=== PATIENT | male | born 1975 | race Caucasian/White ===

== ENCOUNTER 2017-01-30 07:57 | Inpatient (IN) | payer BC, OTHER ==
[~2017-01-30] VITALS: Ht 182.9 cm; Wt 108.0 kg
--- NOTE | 2017-01-30 11:16 | NUR ---
PRE ADMISSION 41 year old male from [place], alert and oriented x4. bp: 142/97 heart rate: 75, t: 97.8, r: 16, o2 sat: 95%. Patient reports no known drug allergies. Patient reports he is here to detox off of: Etoh, and opiate prescritions pills. Patient brought his home medications with him. Patient denies any history of seizures. Patient educated regarding unit policies with good verbal understanding. Patient was seen and examined by Dr. hammond at intake office.
[2017-01-30] MEDS ORDERED: DICYCLOMINE HCL 20 MG TABLET PO PRN (11:30)
[2017-01-30] MEDS ORDERED: LORAZEPAM 2 MG/1 ML VIAL IM PRN (11:30)
[2017-01-30] MEDS ORDERED: NICOTINE POLACRILEX 4 MG GUM-PK OF TEN BC PRN (11:30)
[2017-01-30] MEDS ORDERED: THIAMINE HCL 200 MG/2 ML VIAL IM ONE (11:30)
[2017-01-30] MEDS ORDERED: MAG HYDROX/AL HYDROX/SIMETH 30 ML LIQUID UDC PO PRN (11:30)
[2017-01-30] MEDS ORDERED: MAGNESIUM HYDROXIDE 30 ML LIQUID UDC PO PRN (11:30)
[2017-01-30] MEDS ORDERED: LOPERAMIDE HCL 2 MG CAPSULE PO PRN ×2 (11:30)
[2017-01-30] MEDS ORDERED: NICOTINE 14 MG/24HR PATCH TD PRN (11:30)
[2017-01-30] MEDS ORDERED: MIRALAX 17 GM POWD.PACK PO PRN (11:30)
[2017-01-30] MEDS ORDERED: diphenhydrAMINE 50 MG CAPSULE PO PRN ×2 (11:30→21:00)
[2017-01-30] MEDS ORDERED: LORAZEPAM 1 MG TABLET PO PRN ×2 (11:30)
[2017-01-30] MEDS ORDERED: ONDANSETRON ODT 4 MG TAB.RAPDIS SL PRN (11:30)
[2017-01-30] MEDS ORDERED: ONDANSETRON 4 MG/2 ML VIAL IM PRN (11:30)
[2017-01-30] MEDS ORDERED: ACETAMINOPHEN 325 MG TABLET PO PRN (11:30)
--- NOTE | 2017-01-30 11:50 | NUR ---
ADMISSION Patient arrived to unit at 1150, noted with steady gait, patients body search completed by male intake staff, no contraband found. Patients body assessment completed, skin intact no bruising, discoloration or skin breakdown noted. patient is 6 feet tall and weighs: 235 lbs. Patient reports no known drug allergies. Patient reports his primary care physician is Dr. Raul Williamson at [facility] in [place]. Patient reports substance use history of: 1. etoh- 4-5 liters of white wine and 3-4 beers (carlo hard lemonade) 4 x a week, last consumed 1 carlo hard lemonade 12 oz drink this morning 01/30/2017, patient reports he began consuming alcohol at the age of 13, but for the past 2 years has been drinking 4xwk. 2. Gary consume 15-20 tabs of 10-325mg each daily for the past 3 years, patient reports he began taking narco in the year 2006, last consumed 4 tabs of 10-325mg each this morning on 01/30/2017. Patient also reports taking prescriptions soma for two years, per patient take 3 tabs of 350mg daily, last took 01/30/2017. Patients home medications were input into [facility], reconciled medications, MD is aware. Patient reports past medical history of: depression Dx: 2 years ago, asthma, Dx: age 13, tear in lumbar 4, Dx: 01/23/2017, arthritis Dx: 1.5 year ago, and surgery to rotator cuff twice in the year 2006 and the year 2008. Patient reports he has no history of seizure. Patient reports siblings have a history of substance abuse. Patient is alert and oriented x4, able to make needs known, presenting with: c/o chills, difficulty sitting still, mild bone and joint aches, mild nausea, tremors that can be felt but not seen, mild anxiety, barely sweating, and moderate generalized body itchiness with admitting cow score of: 6 and ciwa score of: 7. Patients pupils are equal and reactive to light, 3mm. Patients abdomen is soft and non distended, bowel sounds heard in all quadrants. Respirations are even and unlabored, no SOB, patients lungs clear upon auscultation. Safety measures in place. call light kept with in reach. will continue to monitor closely. safety measures in place. Addendum: 02/04/17 at 1205 by ZHANE MONTOYA RN PT ALSO REPORTS USING SOMA PO 1050 MG DAILY. LAST USED 01/30
[2017-01-30] MEDS ORDERED: CETI-102 PO (12:12)
[2017-01-30] MEDS ORDERED: LOPE2CAP PO (12:12)
[2017-01-30] MEDS ORDERED: DIPH25CA83 PO (12:12)
[2017-01-30] MEDS ORDERED: ALBU0.63 NEB (12:12)
[2017-01-30] MEDS ORDERED: PRED5DRO16 EACHEYE (12:12)
[2017-01-30] MEDS ORDERED: MELA3TAB PO (12:12)
[2017-01-30] MEDS ORDERED: TRAZ-144 PO (12:12)
[2017-01-30] MEDS ORDERED: SERT50TA PO (12:12)
[2017-01-30] MEDS ORDERED: DICL100T2 PO (12:12)
[2017-01-30 12:39] VITALS: BP 142/97
[2017-01-30 13:01] LABS: *AMPHETAMINE, URINE NEGATIVE (NEGATIVE); *BARBITURATE, URINE NEGATIVE (NEGATIVE); *CANNABINOID, URINE NEGATIVE (NEGATIVE); *COCCAINE, URINE NEGATIVE (NEGATIVE); *OPIATE, URINE POSITIVE (NEGATIVE); *PHENCYCLIDINE SCREEN,URINE NEGATIVE (NEGATIVE)
[2017-01-30 14:48] LABS: ALANINE AMINOTRANSFERASE 75 U/L (16-63); ALKALINE PHOSPHATASE 90 U/L (50-136); AMYLASE 38 U/L (25-115); ASPARTATE AMINOTRANSFERASE 37 U/L (15-37); BILIRUBIN,TOTAL 0.5 mg/dL (0.2-1.0); CARBON DIOXIDE 33 mmol/L (21-32); CHLORIDE 102 mmol/L (98-107); CREATININE 1.4 mg/dL (0.6-1.3); GLUCOSE 101 mg/dL (74-106); POTASSIUM 4.6 mmol/L (3.5-5.1); UREA NITROGEN, BLOOD 12 mg/dL (7-18)
[2017-01-30 15:07] LABS: BASOPHILS % (AUTO) 0.4 % (0.0-2.0); EOSINOPHILS # (AUTO) 0.4 K/uL (0.0-0.7); EOSINOPHILS % (AUTO) 4.5 % (0.0-7.0); HEMATOCRIT 49.4 % (40-50); HEMOGLOBIN 16.3 G/DL (14.0-18.0); LYMPHOCYTES # (AUTO) 2.8 K/UL (0.8-4.8); LYMPHOCYTES % (AUTO) 30.3 % (20.5-51.5); MEAN CORPUSCULAR HEMOGLOBIN 31.5 UUG (27.0-31.0); MEAN CORPUSCULAR HGB CONC 33 g/dL (32.0-37.0); MEAN CORPUSCULAR VOLUME 95.6 FL (82.0-92.0); MONOCYTES # (AUTO) 0.8 K/UL (0.1-1.30); MONOCYTES % (AUTO) 8.5 % (0.0-11.0); NEUTROPHILS # (AUTO) 5.1 K/UL (1.8-8.9); NEUTROPHILS % (AUTO) 56.3 % (38.5-71.5); PLATELET COUNT (AUTO) 261 K/UL (150-450); RED BLOOD CELL COUNT(AUTO) 5.17 MIL/UL (4.7-6.1); WHITE BLOOD COUNT (AUTO) 9.1 K/UL (4.0-11.2)
[2017-01-30 16:48] LABS: ETHANOL < 3 MG/DL (0-0)
[2017-01-30] MEDS ORDERED: BUPRENORPHINE HCL 2 MG TAB.SUBL SL PRN (17:00)
[2017-01-30] MEDS: IBUPROFEN 600 MG TABLET PO PRN (17:48)
--- NOTE | 2017-01-30 17:48 | NUR ---
PRN MOTRIN patient c/o back pain 10/06 administered Motrin PO as ordered, will monitor effectiveness of medication.
--- NOTE | 2017-01-30 18:48 | NUR ---
MOTRIN REASSESSMENT Patient reports medication effective, current pain level 2/10, tolerable as per patient, will continue to monitor.
--- NOTE | 2017-01-30 18:59 | NUR ---
END OF SHIFT Patient alert and oriented x4, vital signs were stable during shift. Admitted this morning, with admitting dx: opiate/etoh dependence. Patient compliant with therapeutic plan of care during shift.Patient is scheduled to begin an Ativan and subutex taper tomorrow as ordered for s/sx of withdrawal. 1700 assessment patient presented with: tremors that can be felt but not seen, barely sweating, and mild anxiety and heart rate of: 86 with ciwa score of: 3 and cow score of: 4. patient to continue under close observation. Patient compliant with plan of care. encouraged to attend group therapies/sessions to learn new coping skills to prevent relapse. Patient denies SI/HI. Patient encouraged adequate PO fluid intake as tolerated. Patient encouraged adequate PO fluid intake as tolerated. Safety measures in place. call light kept with in reach, safety measures in place. will continue to monitor closely. patient endorsed to restaurant shift leader nurse, all pertinent information discussed.
--- NOTE | 2017-01-30 19:15 | NUR ---
START OF SHIFT Patient is a 41-year-old male admitted today, 01/30/17 for ETOH and opiate dependence. Patient reports drinking 4-5 liters of wine and 3-4 12oz [place] hard lemonade 4x/week for 2 years. Patient reports using 15-20 tablets of 10/325mg [place] daily for 3 years. Patient is scheduled to start 5 day Ativan taper and 5 day Subutex taper tomorrow. Patient has a past medical history of depression, anxiety, tendonitis, arthritis, rotator cuff surgery, and a tear in L4. Patient is FULL CODE, NKA, and on regular diet. Patient is on fall precautions. Upon assessment, patient is alert and oriented x4, respirations 16, even and unlabored; denies SOB or chest pain. Safety measures are in place, call light within reach, bed in low position. Will continue to monitor.
[2017-01-30 20:00] VITALS: BP 131/95
[2017-01-30] MEDS: TRAZODONE 50 MG TABLET PO SCH (20:38)
[2017-01-30] MEDS ORDERED: TRAZODONE 50 MG TABLET PO PRN (21:00)
[2017-01-30] MEDS ORDERED: LORAZEPAM 1 MG TABLET PO SCH (21:00)
[2017-01-31 00:05] VITALS: BP 136/89
--- NOTE | 2017-01-31 00:05 | NUR ---
CIWA AND COWS DEFERRED Patient is asleep, unable to score COWS and CIWA at this time. Patient's respirations are even and unlabored, no distress noted. Will continue to monitor.
[2017-01-31 04:06] VITALS: BP 124/74
[2017-01-31 06:09] LABS: HEPATITIS B SURFACE AG Negative (Negative)
--- NOTE | 2017-01-31 07:15 | NUR ---
END OF SHIFT Patient is a 41-year-old male admitted yesterday, 01/30/17 for ETOH and opiate dependence. Patient is scheduled to start 5 day Ativan taper and 5 day Subutex taper today. Patient has a past medical history of depression, anxiety, tendonitis, arthritis, rotator cuff surgery, and a tear in L4. Patient is FULL CODE, NKA, and on regular diet. Patient is on fall precautions. Patient slept 8 hours, intake 1,500 mL, voided x4, stool x1. Patient did not recieve any PRN medications. Last COWS score was 2, last CIWA score was 3. Saftey measures in place. Will endorse to day shift nurse.
--- NOTE | 2017-01-31 07:16 | NUR ---
Start of shift note SBAR report rcv'd. Pt was admitted for ETOH and opiate dependence. Pt has a PMHx of depression, asthma, tear in L4, tendonitis, arthritis, and a rotator cuff surgery. Pt has NKA, is on a regular diet and is a full code. Pt is on a 5 day ativan and 5 day subutex taper, scheduled to start today. Pt has no complaints at this time. Will continue to monitor pt. All needs addressed at this time.
[2017-01-31 08:00] VITALS: BP 133/82
[2017-01-31] MEDS ORDERED: INFLUENZA VACCINE 2017-2018 0.5 ML DISP.SYRIN IM ONE (09:00)
[2017-01-31] MEDS ORDERED: TUBERCULIN,PURIF.PROT.DERIV. 5 TU/0.1 ML TEST ID ONE (09:00)
[2017-01-31] MEDS: LORAZEPAM 1 MG TABLET PO SCH ×4 (09:52→21:13)
[2017-01-31] MEDS: FOLIC ACID 1 MG TABLET PO SCH (09:52)
[2017-01-31] MEDS: MULTIVITAMINS,THERAPEUTIC TABLET PO SCH (09:52)
[2017-01-31] MEDS: THIAMINE HCL 100 MG TABLET PO SCH (09:52)
[2017-01-31] MEDS: SERTRALINE HCL 50 MG TABLET PO SCH (09:53)
[2017-01-31] MEDS: BUPRENORPHINE HCL 2 MG TAB.SUBL SL SCH ×4 (09:53→21:13)
[2017-01-31] MEDS: CETRIZINE 10 MG PO SCH (09:53)
[2017-01-31 12:00] VITALS: BP 155/109
--- NOTE | 2017-01-31 12:44 | NUR ---
PRN administration Pt C/o backaches and muscle pain 10/06. Administered PRN robaxin per MD order. Will continue to monitor pt.
[2017-01-31] MEDS: METHOCARBAMOL 750 MG TABLET PO PRN (12:50)
--- NOTE | 2017-01-31 13:44 | NUR ---
Reassessment Pt states that the motrin was effective in alleviating his pain to a comfortable level of 3/10.
--- NOTE | 2017-01-31 13:45 | NUR ---
Activity Group Note: Client did not attend.
[2017-01-31 16:00] VITALS: BP 138/88
--- NOTE | 2017-01-31 18:55 | NUR ---
End of shift note Pt was admitted for ETOH and opiate dependence. Pt has NKA, is on a regular diet and is a full code. Pt has a PMHx of depression, asthma, tear in L4, tendonitis, arthritis, and a rotator cuff surgery.Pt is on a 5 day ativan and 5 day subutex taper, which was initiated today. Pt is tolerating well, states the medication is alleviating his severe s/s of withdrawal and that he is comfortable at this time. Pt has no complaints at this time. All needs addressed at this time. Pt had a CIWA of 5 and COWS of 6 at 1600. Pt ate 75% of breakfast, 100% of lunch and dinner, drank 3084 ml of fluids, had 3 voids and 1BM. Will endorse SBAR to coming shift.
--- NOTE | 2017-01-31 19:15 | NUR ---
START OF SHIFT Received 41 year old male patient admitted on 01/30/17 for ETOH and Opiate dependency. Pt is full code with NKA. He reports a PMHx of depression, asthma, tear in L4, tendonitis, arthritis, and rotator cuff sx. Pt reports drinking ETOH 4-5 Liters of wine and 3-4 12 oz of [place]ikes hard lemonade 4 times per week for 2 years. Last dose was 12 oz of mikes hard lemonade. And [place] 15-20 tabs 10/325 mg daily for 3 years. Last dose was 1 tab of 10/325 on 01/30/17. Pt started 5 day Ativan and 5 day Subutex taper today and is tolerating well. Per endorsement, pt received PRN Robaxin. Pt is alert and oriented x4, breathing is even and unlabored. Safety measures in place. Will monitor.
[2017-01-31 20:00] VITALS: BP 135/88
[2017-01-31] MEDS: TRAZODONE 50 MG TABLET PO SCH (21:13)
--- NOTE | 2017-02-01 | NUR ---
VITALS REFUSED, COWS/CIWA DEFERRED 0000 vitals refused by pt. CIWA deferred d/t pt lying in bed with eyes closed noted to be asleep. Breathing even and unlabored. Safety measures in place. Will monitor. Addendum: 02/01/17 at 0204 by SHAD KEE RN COWS and CIWA deferred.
--- NOTE | 2017-02-01 01:07 | NUR ---
PRN ZOFRAN Pt complains of nausea with no episode of vomiting. PRN Zofran administered as ordered. Safety measures in place. Will monitor effectiveness.
--- NOTE | 2017-02-01 02:07 | NUR ---
PRN ZOFRAN REASSESSMENT PRN medication effective. Pt resting comfortably in bed, no facial grimacing noted. No complaints of nausea. Breathing even and unlabored. Safety measures in place. Will monitor.
--- NOTE | 2017-02-01 04:00 | NUR ---
VITALS REFUSED, COWS/CIWA DEFERRED 0400 vitals refused by pt. COWS and CIWA deferred d/t pt lying in bed with eyes closed noted to be asleep. Respirations 16, breathing even and unlabored. Safety measures in place. Will monitor.
--- NOTE | 2017-02-01 07:10 | NUR ---
Start of shift note SBAR report rcv'd. Pt was admitted for ETOH and opiate dependence. Pt denies any allergies, is a regular diet and is a full code. Pt has a PMHx of depression, asthma, tear in L4, tendonitis, arthritis, rotator cuff surgery. Pt is on day 2 of a 5 day ativan and subutex taper. Pt is resting in bed, pt has no complaints at this time. Will continue to monitor pt. All needs addressed at this time.
--- NOTE | 2017-02-01 07:22 | NUR ---
END OF SHIFT Pt is a 41 year old male patient admitted on 01/30/17 for ETOH and Opiate dependency. Pt is full code with NKA. He reports a PMHx of depression, asthma, tear in L4, tendonitis, arthritis, and rotator cuff sx. Pt continues on a 5 day Ativan and 5 day Subutex taper today and is tolerating well. At 0107 he received PRN Zofran. He slept a total of 5 hrs, Intake: 1352mL, Void: x2, BM:0. Pt remains alert and oriented x4, breathing is even and unlabored. Safety measures in place. Endorsed to oncoming shift.
[2017-02-01 08:00] VITALS: BP 137/73
[2017-02-01] MEDS: BUPRENORPHINE HCL 2 MG TAB.SUBL SL SCH ×3 (08:30→20:11)
[2017-02-01] MEDS: THIAMINE HCL 100 MG TABLET PO SCH (08:30)
[2017-02-01] MEDS: FOLIC ACID 1 MG TABLET PO SCH (08:30)
[2017-02-01] MEDS: SERTRALINE HCL 50 MG TABLET PO SCH (08:30)
[2017-02-01] MEDS: MULTIVITAMINS,THERAPEUTIC TABLET PO SCH (08:30)
[2017-02-01] MEDS: LORAZEPAM 1 MG TABLET PO SCH ×3 (08:30→20:11)
[2017-02-01] MEDS: CETRIZINE 10 MG PO SCH (08:31)
[2017-02-01 08:50] LABS: MAGNESIUM 2.1 mg/dL (1.8-2.4)
[2017-02-01] MEDS: PROAIR INH PRN ×2 (10:10→16:39)
--- NOTE | 2017-02-01 10:11 | NUR ---
PRN administration Pt c/o SOB and requesting inhaler. Administered PRN inhaler per MD order.
--- NOTE | 2017-02-01 10:41 | NUR ---
Reassessment Pt states that the albuterol was effective, denies any further SOB. Will continue to monitor pt.
[2017-02-01 12:00] VITALS: BP 137/99
--- NOTE | 2017-02-01 12:00 | NUR ---
Pt pain level Pt reports a pain level of 7/10, offered pt pain medication and muscle relaxer. Pt states "I am ok". Addendum: 02/01/17 at 1258 by SPIKE CHOW RN Amended: Links added.
[2017-02-01] MEDS: BACLOFEN 10 MG TABLET PO SCH ×2 (14:06→20:11)
[2017-02-01] MEDS: LIDOCAINE 5% PATCH TD SCH (14:06)
[2017-02-01] MEDS: GABAPENTIN 300 MG CAPSULE PO SCH ×2 (14:06→20:11)
[2017-02-01 16:00] VITALS: BP 138/76
--- NOTE | 2017-02-01 16:39 | NUR ---
PRN administration Pt c/o SOB, wheezing auscultated. Administered PRN albuterol inhaler. Will continue to monitor pt
--- NOTE | 2017-02-01 16:55 | NUR ---
Reassessment Pt states that his SOB is not relieved by inhaler and that his chest remains "tight and I can't take a deep breath". Dr Bedolla notified, will place orders. VS are stable, BP 138/76, HR 79 SpO2 96% on RA. Will continue to monitor pt.
--- NOTE | 2017-02-01 17:15 | NUR ---
Respiratory called Notified respiratory of pending orders and that pt felt SOB, requested breathing treatment.
[2017-02-01] MEDS: CLONIDINE HCL 0.1 MG TABLET PO PRN (17:42)
[2017-02-01] MEDS: KETOROLAC TROMETHAMINE 30 MG INJ IM PRN (17:42)
--- NOTE | 2017-02-01 17:42 | NUR ---
PRN administration Pt c/o back pain 12/06 and anxiety. Administered PRN toradol to RD and clonidine per MD order. Will continue to monitor pt.
--- NOTE | 2017-02-01 18:12 | NUR ---
Reassessment Pt states that his pain level is a 4/10 and that he is more comfortable now. Will continue to monitor pt.
--- NOTE | 2017-02-01 18:15 | NUR ---
Respiratory Notified Notified respiratory therapist again that pt is requesting breathing treatment.
[2017-02-01] MEDS: ALBUTEROL SULFATE 2.5 MG/3 ML NEBU NEB PRN (18:37)
[2017-02-01] MEDS: IPRATROPIUM BROMIDE 0.5 MG/2.5 ML NEBU NEB PRN (18:37)
--- NOTE | 2017-02-01 18:42 | NUR ---
Reassessment Pt states that the clonidine was effective in alleviating his anxiety, pt had a breathing treatment and states that he is feeling "much better". Will continue to monitor pt.
--- NOTE | 2017-02-01 18:57 | NUR ---
End of shift note Pt was admitted for ETOH and opiate dependence. . Pt has a PMHx of depression, asthma, tear in L4, tendonitis, arthritis, rotator cuff surgery. Pt denies any allergies, is a regular diet and is a full code. Pt is on day 2 of a 5 day ativan and subutex taper and tolerating well. Pt required PRN toradol, Clonidine, albuertol inhaler x 2, and then breathing treatment during the shift. Albuterol inhaler wasn't effective in alleviating his SOB, Dr Bedolla ordered for him to start breathing treatment and he had one treatment during the shift which was effective. Pt states that he is comfortable at this time. All needs addressed at this time. Will endorse SBAR to oncoming shift.
--- NOTE | 2017-02-01 19:15 | NUR ---
START OF SHIFT Received 41 year old male patient admitted on 01/30/17 for ETOH and Opiate dependency. Pt is full code with NKA. He reports a PMHx of depression, asthma, tear in L4, tendonitis, arthritis, and rotator cuff sx. Pt reports drinking ETOH 4-5 Liters of wine and 3-4 12 oz of mikes hard lemonade 4 times per week for 2 years. Last dose was 12 oz of mikes hard lemonade. And [place] 15-20 tabs 10/325 mg daily for 3 years. Last dose was 1 tab of 10/325 on 01/30/17. Pt is currently receiving 5 day Ativan and 5 day Subutex taper and is tolerating well. Per endorsement, pt received PRN Toradol, clonidine and Albuterol x2. Pt is alert and oriented x4, breathing is even and unlabored. Safety measures in place. Will monitor.
[2017-02-01 20:00] VITALS: BP 135/75
[2017-02-01] MEDS: TRAZODONE 50 MG TABLET PO SCH (20:11)
--- NOTE | 2017-02-02 | NUR ---
VITALS REFUSED, COWS/CIWA DEFERRED 0000 vitals refused. COWS and CIWA deferred d/t pt lying in bed with eyes closed noted to be asleep. Respirations 16, breathing is even and unlabored. Safety measures in place. Will monitor.
[2017-02-02 04:00] VITALS: BP 143/89
[2017-02-02] MEDS: KETOROLAC TROMETHAMINE 30 MG INJ IM PRN ×2 (04:11→13:00)
--- NOTE | 2017-02-02 04:11 | NUR ---
PRN TORADOL Pt complains of 8/10 back pain. PRN Toradol administered as ordered. Breathing even and unlabored. Safety measures in place. Will monitor effectiveness.
--- NOTE | 2017-02-02 04:20 | NUR ---
NURSING NOTE Pt complains of SOB and chest tightness with audible wheezing. Respiratory was called to administer breathing treatment.
[2017-02-02] MEDS: ALBUTEROL SULFATE 2.5 MG/3 ML NEBU NEB PRN ×3 (04:23→22:28)
[2017-02-02] MEDS: IPRATROPIUM BROMIDE 0.5 MG/2.5 ML NEBU NEB PRN ×3 (04:23→22:27)
--- NOTE | 2017-02-02 04:30 | NUR ---
PT RECEIVED AWAKE ALERT RESPONSIVE SHOWING MILD SIGNS OF RESPIRATORY DISTRESS WITH AUDIBLE WHEEZING. PRN HHN TX INDICATED AND ADMINISTERED. PT RESPONDED WELL TO TX WITH NO ADVERSE REACTION. POST TX, PT IS MORE COMFORTABLE WITH NO SIGNS OF SOB. PT AWARE OF HIS RESPIRATORY ORDERS.
--- NOTE | 2017-02-02 04:45 | NUR ---
PRN TORADOL REASSESSMENT PRN medication effective. Pt reports feeling better. Reports pain 6/10. Breathing is even and unlabored. Safety measures in place. Will monitor.
--- NOTE | 2017-02-02 04:50 | NUR ---
BREATHING TREATMENT REASSESSMENT Pt reports feeling better with decreased SOB. He appears more comfortable and is resting comfortably in bed. Safety measures in place. Will monitor.
--- NOTE | 2017-02-02 07:07 | NUR ---
END OF SHIFT Pt is a 41 year old male patient admitted on 01/30/17 for ETOH and Opiate dependency. Pt is full code with NKA. He reports a PMHx of depression, asthma, tear in L4, tendonitis, arthritis, and rotator cuff sx. Pt continues on a 5 day Ativan and 5 day Subutex taper and is tolerating well. At 0411 he received PRN Toradol and and PRN breathing treatment. He slept a total of 7 hrs, Intake: 1355mL, Void: x2, BM:0, COWS: 8, CIWA:6. Pt remains alert and oriented x4, breathing is even and unlabored. Safety measures in place. Endorsed to oncoming shift.
--- NOTE | 2017-02-02 07:30 | NUR ---
START OF SHIFT Pt is a 41 yr old male, A&Ox3. Pt was admitted on 01/30/17 for ETOH/Opiate Dependence and is on 5 day Ativan and % day Subutex taper as ordered. Pt is full code, regular diet and NKA. Received from mini shifter nurse, pt received Toradol PRN for pain. Medication was effective. Pt slept for 7 hrs. Last COWS score was 8, CIWA score was 6 at 0400. Pt is currently in bed resting with respirations even and unlabored. No acute distress noted. Skin is intact, warm and dry to touch. Safety precautions observed. Bed kept in low position and locked with side rails up x2. Call light is within reach. Will continue to monitor.
[2017-02-02 08:00] VITALS: BP 128/78
[2017-02-02] MEDS: MULTIVITAMINS,THERAPEUTIC TABLET PO SCH (08:39)
[2017-02-02] MEDS: THIAMINE HCL 100 MG TABLET PO SCH (08:39)
[2017-02-02] MEDS: LORAZEPAM 1 MG TABLET PO SCH ×3 (08:39→17:14)
[2017-02-02] MEDS: GABAPENTIN 300 MG CAPSULE PO SCH ×3 (08:39→21:30)
[2017-02-02] MEDS: FOLIC ACID 1 MG TABLET PO SCH (08:39)
[2017-02-02] MEDS: SERTRALINE HCL 50 MG TABLET PO SCH (08:39)
[2017-02-02] MEDS: BACLOFEN 10 MG TABLET PO SCH ×3 (08:39→21:30)
[2017-02-02] MEDS: LIDOCAINE 5% PATCH TD SCH (08:40)
[2017-02-02] MEDS: CETRIZINE 10 MG PO SCH (08:42)
[2017-02-02] MEDS ORDERED: LORAZEPAM 1 MG TABLET PO SCH ×2 (09:00→21:00)
[2017-02-02] MEDS ORDERED: BUPRENORPHINE HCL 2 MG TAB.SUBL SL SCH (09:00)
[2017-02-02] MEDS ORDERED: BENZOCAINE/MENTH/CETYLPYRD LOZENGE MM PRN (11:15)
[2017-02-02] MEDS ORDERED: GUAIFENESIN/DEXTROMETHORPHAN 5 ML UDC PO PRN (11:15)
[2017-02-02 12:00] VITALS: BP 143/98
--- NOTE | 2017-02-02 12:53 | NUR ---
PRN MEDICATION GIVEN Cepacol 1 lozenge PRN was given for sore throat. Encouraged increase fluid intake. Will continue to monitor.
--- NOTE | 2017-02-02 13:00 | NUR ---
PRN GIVEN Pt c/o upper and lower back pain 12/06. Facial grimacing is noted. Toradol 30mg IM PRN was given as ordered. Medication luis carlos well. Will continue to monitor.
--- NOTE | 2017-02-02 14:00 | NUR ---
PRN RE-ASSESSMENT Toradol PRN was effective. Pt continue to c/o back pain but pain level subsided to 4/10. Encouraged increase fluid intake. Will continue to monitor.
[2017-02-02] MEDS: BUPRENORPHINE HCL 2 MG TAB.SUBL SL SCH ×2 (14:53→21:30)
[2017-02-02 16:00] VITALS: BP 159/104
[2017-02-02] MEDS: CLONIDINE HCL 0.1 MG TABLET PO PRN (17:15)
--- NOTE | 2017-02-02 17:15 | NUR ---
PRN GIVEN Pt is observed with facial sweats and increase BP of 159/104. Clonidine 0.1mg PO PRN was given as ordered. Medication luis carlos well. Encouraged increase fluid intake Will continue to monitor.
[2017-02-02 18:22] VITALS: BP 151/94
--- NOTE | 2017-02-02 18:22 | NUR ---
PRN RE-ASSESSMENT Clonidine PRN was effective. BP is 151/94. Encouraged increase fluid intake. Will continue to monitor.
--- NOTE | 2017-02-02 18:44 | NUR ---
END OF SHIFT Pt is a 41 yr old male, A&Ox4. Pt was admitted on 01/30/17 for ETOH/Opiate Dependence and is on 5 day Ativan and % day Subutex taper as ordered. Pt is full code, regular diet and NKA. Pt has been cooperative with plan of care and medication regimen. Pt has been observed attending group sessions. Last COWS score was 7, CIWA score was 7 at 1600. Pt has been observed with wheezing. RT was called for Albuterol and Atrovent PRN. Medication was effective. Pt was c/o sore throat and episodes of non-productive cough. MD was made aware with new order for Cepacol PRN, Robitussin PRN and CXR. Cepacol PRN was given at 1253. Pt was also given Toradol IM PRN at 1300 and Clonidine PRN at 1715. Medication was effective. Pt remains afebrile. Pt has been observed with anxiety during the day. Skin is intact, warm and moist to touch. Fine tremors seen. Pt denies any n/v. Pt continues to c/o back pain but is able to tolerate pain level. Encouraged pt to drink plenty of fluids for hydration. Safety precautions observed. Bed kept in low position and locked with side rails up x2. Call light is within reach.
--- NOTE | 2017-02-02 19:30 | NUR ---
START OF SHIFT Pt is a 41 yr old male admitted for ETOH/Opiate Dependence .Pt continues on Ativan and Subutex taper as ordered. Pt is full code, regular diet and NKA. Pt has been cooperative with plan of care and medication regimen. Last COWS score was 7, CIWA score was 7 at 1600. Pt is A/A/O X 4. Skin is intact, warm and moist to touch. PO fluids encouraged as tolerated.Per report,Pt c/o SOB/wheezing and was given breathing treatment with good effect.Pt stated he has had asthma for a long time. Safety precautions observed. Bed kept in low position and locked with side rails up x2. Call light is within reach. Will continue to monitor.
[2017-02-02 20:00] VITALS: BP 139/83
[2017-02-02] MEDS: TRAZODONE 50 MG TABLET PO SCH (21:30)
--- NOTE | 2017-02-02 22:40 | NUR ---
PRN NEBULIZER Pt c/o SOB/wheezing.RT was notified.Nebulizer treatment was given as ordered is effective.Will continue to monitor.
--- NOTE | 2017-02-02 23:00 | NUR ---
PT SEEN RESTING IN BED,STATES "FEELING BETTER" WITH DECREASED SOB/WHEEZING.WILL CONTINUE TO MONITOR.
--- NOTE | 2017-02-03 | NUR ---
VITALS REFUSED, COWS/CIWA DEFERRED V/S refused by Pt. COWS/CIWA deferred d/t pt being fast asleep.Breathing even and unlabored. Safety measures in place. Will continue to monitor.
[2017-02-03] MEDS: KETOROLAC TROMETHAMINE 30 MG INJ IM PRN (03:59)
[2017-02-03 04:00] VITALS: BP 125/81
--- NOTE | 2017-02-03 04:00 | NUR ---
PRN MED PRN TORADOL IM GIVEN ORDERED FOR C/O LOWER BACK PAIN.PAIN LEVEL 8/10.WILL MONITOR.
--- NOTE | 2017-02-03 04:30 | NUR ---
PRN F/U TORADOL IS EFFECTIVE IN DECREASING PAIN.PT IS SLEEPING AT THIS TIME,UNABLE TO ASSESS PAIN LEVEL.NO S/S OF DISTRESS NOTED.
--- NOTE | 2017-02-03 06:52 | NUR ---
END OF SHIFT Pt is a 41 yr old male admitted for ETOH/Opiate Dependence .Pt continues on Ativan and Subutex taper as ordered. Pt is full code, regular diet and NKA. Pt has been cooperative with plan of care and medication regimen. Last COWS score was 5, CIWA score was 5 . Pt is A/A/O X 4. Skin is intact, warm and moist to touch. PO fluids encouraged as tolerated.Pt c/o SOB/wheezing and was given breathing treatment with good effect.Pt stated he has had asthma for a long time.PRN Toradol IM was given for low back pain and was effective.Pt slept 7 hrs,fluid intake was 500 mls,voided x 1. Safety precautions observed. Bed kept in low position and locked with side rails up x2. Call light is within reach. Will continue to monitor.
--- NOTE | 2017-02-03 07:30 | NUR ---
START OF SHIFT NOTE Received report from night nurse, 41 year old male admitted for ETOH/ OPIOID dependence. Pt cont on 5 day Ativan/5 day Subutex taper. Pt reports a PMH of depression, asthma, tear in L4, tendonitis, arthritis, and rotator cuff sx. Per endorsement pt received PRN medication and was effective per night nurse, last CIWA-5/COWS-, Slept for 5 hours. Patient received awake, alert and oriented x4, educated regarding plan of care for the day and medication regimen with good verbal understanding. Safety measures in place. call light kept with in reach, will continue to monitor.
[2017-02-03 08:00] VITALS: BP 135/94
[2017-02-03] MEDS: FOLIC ACID 1 MG TABLET PO SCH (09:07)
[2017-02-03] MEDS: GABAPENTIN 300 MG CAPSULE PO SCH ×3 (09:07→20:08)
[2017-02-03] MEDS: LORAZEPAM 1 MG TABLET PO SCH ×3 (09:07→20:08)
[2017-02-03] MEDS: IBUPROFEN 600 MG TABLET PO PRN (09:07)
[2017-02-03] MEDS: BACLOFEN 10 MG TABLET PO SCH ×3 (09:07→20:08)
[2017-02-03] MEDS: MULTIVITAMINS,THERAPEUTIC TABLET PO SCH (09:07)
[2017-02-03] MEDS: SERTRALINE HCL 50 MG TABLET PO SCH (09:07)
[2017-02-03] MEDS: BUPRENORPHINE HCL 2 MG TAB.SUBL SL SCH ×3 (09:08→20:08)
[2017-02-03] MEDS: LIDOCAINE 5% PATCH TD SCH (09:08)
--- NOTE | 2017-02-03 09:14 | NUR ---
PRN BENTYL Pt c/o of stomach cramps, Pt provided with non pharmacological intervention with no relief. Administered PRN Bentyl 20mg 1tab Po, as ordered. Will cont to monitor and reassess.
[2017-02-03] MEDS: CETRIZINE 10 MG PO SCH (09:15)
[2017-02-03] MEDS: THIAMINE HCL 100 MG TABLET PO SCH (10:04)
--- NOTE | 2017-02-03 10:14 | NUR ---
BENTYL REASSESSMENT Pt reported medication effective stomach cramps subside.
[2017-02-03 12:00] VITALS: BP 115/88
--- NOTE | 2017-02-03 15:53 | NUR ---
CARE ENDORSED All pertinent information given and care endorsed to nurse in charge.
--- NOTE | 2017-02-03 15:53 | NUR ---
Pt received from previous nurse.
[2017-02-03 16:00] VITALS: BP 105/78
--- NOTE | 2017-02-03 19:21 | NUR ---
End of Shift Endorsement given to nightshift nurse. PT is alert and oriented x4. Pt is in STABLE condition at this time. Remains compliant with medication and diet regimen. All needs have been met, All safety measures in place per hospital policy. Bed in lowest position, side rails up x2, call-light within reach. Will continue to monitor
--- NOTE | 2017-02-03 19:22 | NUR ---
Start of shift note Received report from day shift nurse. Pt is a 41 yo male, A+Ox4, presenting to [facility] for ETOH/Opiate dependence. Pt has NKA, is on Full Code status, and on Regular diet. Pt is on Fall and Seizure precautions. Pt has HX of Depression, Asthma, tendonitis, Arthritis, rotator cuff SX, and tear in L4. Pt is on 5 day Ativan and 5 day Subutex tapers, tolerated well. No s/s of distress noted at this time. Respirations even and unlabored. Will continue to monitor.
[2017-02-03 20:19] VITALS: BP 110/73
[2017-02-03] MEDS: TRAZODONE 50 MG TABLET PO SCH ×2 (20:30→23:55)
[2017-02-03] MEDS: METHOCARBAMOL 750 MG TABLET PO PRN (23:55)
--- NOTE | 2017-02-04 00:03 | NUR ---
PRN Robaxin Pt c/o upper abdominal pain and requested for PRN Robaxin. Medication given and tolerated well. Will reassess within 1 HR. Will continue to monitor.
[2017-02-04 00:44] VITALS: BP 112/75
--- NOTE | 2017-02-04 01:00 | NUR ---
PRN Robaxin Reassessment Medication effective. Pt is resting well in bed at this time. No s/s of ASE/distress noted at this time. Respirations even and unlabored. Will continue to monitor.
[2017-02-04 04:13] VITALS: BP 118/78
[2017-02-04] MEDS: IPRATROPIUM BROMIDE 0.5 MG/2.5 ML NEBU NEB PRN ×2 (05:09→13:58)
[2017-02-04] MEDS: ALBUTEROL SULFATE 2.5 MG/3 ML NEBU NEB PRN ×2 (05:09→13:58)
--- NOTE | 2017-02-04 06:54 | NUR ---
End of shift note Pt is a 41 yo male, A+Ox4, presenting to [facility] for ETOH/Opiate dependence. Pt has NKA, is on Full Code status, and on Regular diet. Pt is on Fall and Seizure precautions. Pt has HX of Depression, Asthma, tendonitis, Arthritis, rotator cuff SX, and tear in L4. Pt is on 5 day Ativan and 5 day Subutex tapers, tolerated well. Pt was given PRN Robaxin @0003 and PRN breathing Tx @0511. Pt slept for a total of 6 HRS. Last COWS: 3 and Last CIWA: 3 @0400. No s/s of distress noted at this time. Respirations even and unlabored. Will endorse to day shift nurse.
[2017-02-04 08:00] VITALS: BP 115/61
--- NOTE | 2017-02-04 08:05 | NUR ---
START OF SHIFT: RECEIVED PT A/O X 4. HE REPORTS SOME MILD ANXIETY AND RESTLESSNESS. ATIVAN/SUBUTEX TAPER IN PROGRESS TO MANAGE S/S OF W/D. COWS 4 CIWA 3. HE REPORTS RUQ PAIN 8/10 AND SMALL ECCHYMOTIC AREA NOTED. MOTRIN AND ROBAXIN PRN GIVEN TO MANAGE PAIN. AWAITING RESULTS FOR US. ENCOURAGED INCREASED FLUIDS TO ASSIST IN FACILITATING DETOX PROCESS. WILL MONITOR EFFECTIVENESS OF PRNS. WILL CONTINUE TO PROVIDE SAFE AND SUPPORTIVE ENVIRONMENT.
[2017-02-04] MEDS: METHOCARBAMOL 750 MG TABLET PO PRN (08:40)
[2017-02-04] MEDS: BACLOFEN 10 MG TABLET PO SCH (08:40)
[2017-02-04] MEDS: IBUPROFEN 600 MG TABLET PO PRN ×2 (08:40→21:15)
[2017-02-04] MEDS: LIDOCAINE 5% PATCH TD SCH (08:41)
[2017-02-04] MEDS: MULTIVITAMINS,THERAPEUTIC TABLET PO SCH (08:41)
[2017-02-04] MEDS: SERTRALINE HCL 50 MG TABLET PO SCH (08:41)
[2017-02-04] MEDS: GABAPENTIN 300 MG CAPSULE PO SCH ×3 (08:41→21:15)
[2017-02-04] MEDS: FOLIC ACID 1 MG TABLET PO SCH (08:41)
[2017-02-04] MEDS: LORAZEPAM 1 MG TABLET PO SCH ×2 (08:41→21:15)
[2017-02-04] MEDS: BUPRENORPHINE HCL 2 MG TAB.SUBL SL SCH ×2 (08:41→21:15)
[2017-02-04] MEDS: CETRIZINE 10 MG PO SCH (08:43)
[2017-02-04] MEDS: THIAMINE HCL 100 MG TABLET PO SCH (08:43)
--- NOTE | 2017-02-04 09:05 | NUR ---
PRN ROBAXIN AND MOTRIN EFFECTIVE. PT STATES PAIN IS NOW 4/10 ON SCALE. WILL CONTINUE TOP MONITOR.
[2017-02-04 12:00] VITALS: BP 129/74
[2017-02-04] MEDS: DICYCLOMINE HCL 20 MG TABLET PO SCH ×2 (15:05→21:15)
[2017-02-04] MEDS: BACLOFEN 20 MG TABLET PO SCH ×2 (15:05→21:15)
[2017-02-04 15:30] LABS: BASOPHILS % (AUTO) 0.5 % (0.0-2.0); EOSINOPHILS # (AUTO) 0.3 K/uL (0.0-0.7); EOSINOPHILS % (AUTO) 5.3 % (0.0-7.0); HEMATOCRIT 43.1 % (40-50); HEMOGLOBIN 14.4 G/DL (14.0-18.0); LYMPHOCYTES # (AUTO) 2.3 K/UL (0.8-4.8); LYMPHOCYTES % (AUTO) 38.9 % (20.5-51.5); MEAN CORPUSCULAR HEMOGLOBIN 31.8 UUG (27.0-31.0); MEAN CORPUSCULAR HGB CONC 33 g/dL (32.0-37.0); MEAN CORPUSCULAR VOLUME 95.3 FL (82.0-92.0); MONOCYTES # (AUTO) 0.8 K/UL (0.1-1.30); MONOCYTES % (AUTO) 13.1 % (0.0-11.0); NEUTROPHILS # (AUTO) 2.6 K/UL (1.8-8.9); NEUTROPHILS % (AUTO) 42.2 % (38.5-71.5); PLATELET COUNT (AUTO) 204 K/UL (150-450); RED BLOOD CELL COUNT(AUTO) 4.52 MIL/UL (4.7-6.1)
[2017-02-04 15:37] LABS: BILIRUBIN,DIRECT 0.1 mg/dL (0.0-0.2); BILIRUBIN,TOTAL 0.4 mg/dL (0.2-1.0); CREATININE 1.3 mg/dL (0.6-1.3); POTASSIUM 4.5 mmol/L (3.5-5.1); TOTAL PROTEIN, SERUM 6.6 g/dL (6.4-8.2)
[2017-02-04 16:00] VITALS: BP 134/86
[2017-02-04] MEDS ORDERED: IPRATROPIUM BROMIDE 0.5 MG/2.5 ML NEBU NEB PRN (16:00)
[2017-02-04] MEDS ORDERED: KETOROLAC TROMETHAMINE 30 MG INJ IM PRN (18:15)
--- NOTE | 2017-02-04 18:31 | NUR ---
END OF SHIFT: PT CONTINUES ON SUBUTEX/ATIVAN TAPER.PT C/O OF UPPER ABDOMEN PAIN BUT IT HAS LESSENED SHIFT PROGRESSED. MOTRIN AND ROBAXIN EFFECTIVE. L; COWS 4 CIWA 2. HE HAD SOME WHEEZING TODAY AND RT NOTIFIED AND NEBULIZER TREATMENT ADMINISTERED AND EFFECTIVE. PT ATTENDED THE AFTERNOON GROUP BUT WAS EXCUSED FROM AM GROUP DUE TO PAIN. HE IS COMPLIANT WITH MEDS AND TREATMENT PLAN.
--- NOTE | 2017-02-04 19:30 | NUR ---
START OF SHIFT Pt is a 41 y/o male admitted on 01/30/17 for ETOH and opiate dependence. Pt is full code, regular diet, NKA, and on fall/seizure precautions. No reported seizure hx. This ia pts first time in treatment. Pt reports PMH of asthma, allergic rhinitis, arthritis, tendonitis, and depression. Pt started on a 5 day Ativan and 5 day Subutex taper on 01/31/17, tolerating well. Upon assessment pt presents with increased HR, skin flushing, anxiety and complains of pain in right upper quadrant of abdomen and lower back. PA is 5/10. Respirations 18, even and unlabored. Denies N/V/D. Abdomen is tender to RUQ and rigid. Denies chest pain or SOB. Medications due. Safety measures in place. Call light within reach. Will continue to monitor.
[2017-02-04 20:00] VITALS: BP 149/92
--- NOTE | 2017-02-04 21:00 | NUR ---
NPO after midnight Educated/enforced pt that he will be NPO after midnight d/t scheduled CT scan with contrast tomorrow morning. Pt reports he understands.
[2017-02-04] MEDS: TRAZODONE 50 MG TABLET PO SCH (21:15)
--- NOTE | 2017-02-04 21:15 | NUR ---
PRN MOTRIN ADMINISTRATION Pt reports pain 5/10 in RUQ of abdomen that radiates to lower/mid back. Pt is guarding abdomen and has facial grimacing. Safety measures in place. Call light within reach. Will continue to monitor.
--- NOTE | 2017-02-04 22:15 | NUR ---
PRN MOTRIN REASSESSMENT Pt reports improvement of pain in abdomen and lower back, but has not completely ceased. Safety measures in place. Call light within reach. Will continue to monitor pain.
[2017-02-05] VITALS: BP 138/80
[2017-02-05] MEDS: ALBUTEROL SULFATE 2.5 MG/3 ML NEBU NEB PRN ×2 (03:26→09:01)
--- NOTE | 2017-02-05 04:00 | NUR ---
VITALS REFUSED AND CIWA/COWS DEFERRED Pt refused vitals, pt is laying in bed with eyes closed, CIWA and COW to be assessed when pt is fully awake per order.
--- NOTE | 2017-02-05 07:23 | NUR ---
END OF SHIFT Pt is a 41 y/o male admitted on 01/30/17 for ETOH and opiate dependence. Pt is full code, regular diet, NKA, and on fall/seizure precautions. No reported seizure hx. Pt reports PMH of asthma, allergic rhinitis, arthritis, tendonitis, and depression. Pt started on a 5 day Ativan and 5 day Subutex taper on 01/31/17, tolerating well. Pt presented with increased HR, skin flushing, anxiety and complains of pain in right upper quadrant of abdomen and lower back. PA is 5/10. Pt is scheduled for abdominal CT scan with contrast this morning, pt has been NPO since midnight. Scheduled medications and PRN Motrin and Albuterol inhaler administered, effective in S/S of withdrawal and SOB as verbalized by pt and COW 4 CIWA 3 lowered to COW 2 CIWA 2. Slept 5 hours. Intake 1000 ml, void x 2, stool x 1. Safety measures in place Call light within reach. Pts needs have been met. Endorsed to day shift nurse.
--- NOTE | 2017-02-05 07:43 | NUR ---
BEGINNING OF SHIFT Patient endorsement report received from water pipe installer nurse, all pertinent information discussed. Patient is a 41 year old male with admitting Dx: etoh/opiate dependence. Patient completed 5 day Ativan and 5 ay Subutex taper on 02/04/2017, continues under close observation during shift. Patient is scheduled to have a CT with contrast this morning d/t RUQ Pain. Patient has been NPO. Per water pipe installer patient slept for 5 hours, received PRN: Motrin. Patient with last cow score of: 2 and ciwa score of: 3. Safety measures in place. call light kept with in reach, will continue ot monitor closely. Addendum: 02/05/17 at 0826 by MIRIAN AKBAR LVN CLARIFICATION: patient is scheduled to receive last dose of Ativan and Subutex taper as ordered, will administer as ordered, will continue to monitor.
[2017-02-05 08:10] VITALS: BP 134/92
[2017-02-05] MEDS: DICYCLOMINE HCL 20 MG TABLET PO SCH ×3 (08:49→20:58)
[2017-02-05] MEDS: IBUPROFEN 600 MG TABLET PO PRN ×2 (08:50→22:42)
[2017-02-05] MEDS: SERTRALINE HCL 50 MG TABLET PO SCH (08:50)
[2017-02-05] MEDS: BACLOFEN 20 MG TABLET PO SCH ×3 (08:50→20:58)
[2017-02-05] MEDS: MULTIVITAMINS,THERAPEUTIC TABLET PO SCH (08:50)
[2017-02-05] MEDS: GABAPENTIN 300 MG CAPSULE PO SCH ×3 (08:50→20:58)
[2017-02-05] MEDS: THIAMINE HCL 100 MG TABLET PO SCH (08:50)
[2017-02-05] MEDS: FOLIC ACID 1 MG TABLET PO SCH (08:50)
--- NOTE | 2017-02-05 08:50 | NUR ---
PRN MOTRIN Patient c/o pain 6/10; to abdominal and back area, provided with non pharmacological interventions with no relief, administered Motrin as ordered, will monitor effectiveness of medication of medication.
[2017-02-05] MEDS: LIDOCAINE 5% PATCH TD SCH (08:51)
[2017-02-05] MEDS: CETRIZINE 10 MG PO SCH (08:55)
[2017-02-05] MEDS ORDERED: BUPRENORPHINE HCL 2 MG TAB.SUBL SL SCH (09:00)
[2017-02-05] MEDS ORDERED: LORAZEPAM 1 MG TABLET PO SCH (09:00)
[2017-02-05] MEDS: IPRATROPIUM BROMIDE 0.5 MG/2.5 ML NEBU NEB PRN (09:01)
--- NOTE | 2017-02-05 09:50 | NUR ---
MOTRIN REASSESSMENT Patient reports medicatino somewhat effective, reduced pain to 3/10, tolerable as per patient, will conitnue to monitor.
--- NOTE | 2017-02-05 09:55 | NUR ---
OFF THE UNIT FOR CT SCAN Per MD patient to have CT scan with PO contrast, patient has been NPO since midnight. patient is off the unit at 0955 in stable condition.
--- NOTE | 2017-02-05 10:05 | NUR ---
ON THE UNIT Patient returned from CT scan in stable condition, back on the unit at 1005, will continue to monitor.
--- NOTE | 2017-02-05 11:30 | NUR ---
MD COMMUNICATION Patient noted with edema to bilateral lower extremities +2 edema, MD notified and is aware. Patient encouraged to keep bilateral lower extremitatis elevated. Will continue to monitor closely.
--- NOTE | 2017-02-05 11:35 | NUR ---
MATERIAL PROCESSOR SURGEON CONSULT Nurse practitioner for Dr. Olivarez (Surgeon) here to see patient, patient examined and test results evaluated by MATERIAL PROCESSOR.
[2017-02-05 13:00] VITALS: BP 134/92
[2017-02-05] MEDS ORDERED: IBUP-1955 PO (13:38)
[2017-02-05] MEDS ORDERED: NICO4GUM38 BC (13:38)
[2017-02-05] MEDS ORDERED: LIDO30AD10 TD (13:38)
[2017-02-05] MEDS ORDERED: BACL20TA PO (13:38)
[2017-02-05] MEDS ORDERED: DICY20TA28 PO (13:38)
[2017-02-05] MEDS ORDERED: GABA-534 PO (13:38)
[2017-02-05 17:05] VITALS: BP 148/94
--- NOTE | 2017-02-05 18:55 | NUR ---
END OF SHIFT Patient alert and oriented x4, vital signs were stable during shift. Patient compliant with therapeutic plan of care during shift. Patient with admitting Dx: opiate/etoh dependence. Patient completed Ativan and Subutex taper, received last dose this morning, well tolerated, no ASE noted. During shift patient had CT scan with contrast as ordered, MD is aware of patients results. Patient also was noted with edema to bilateral lower extremities, MD is aware, patient was encouraged to keep BLE elevated. encouraged adequate PO fluid intake as tolerated. 0900 assessment patient presented with: mild bone and joint aches, irritable, anxiety with ciwa score of: 5 and cow score of: 3; 1300 assessment patient presented with: mild bone and joint aches and anxiety with cow score of: 3 and ciwa score of: 3; 1700 assessment patient presented with: heart rate of 94, mild bone and joint aches and anxiety with cow score of: 4 and ciwa score of: 3. Patient is scheduled to be discharged tomorrow, noted self motivated towards sobriety. During shift patient received PRN: Motrin as ordered, medication effective, one hour post administration. During shift patient also had breathing treatment of albuterol and Atrovent as ordered administered by RT well tolerated. Patient compliant with plan of care. encouraged to attend group therapies/sessions to learn new coping skills to prevent relapse, noted attending and participating. Patient denies SI/HI. Patient encouraged adequate PO fluid intake as tolerated. Safety measures in place. call light kept with in reach, safety measures in place. will continue to monitor closely. patient endorsed to fish egg packer nurse, all pertinent information discussed.
--- NOTE | 2017-02-05 19:15 | NUR ---
START OF SHIFT NOTE : Pt is a 41 y/o male admitted on 01/30/17 for ETOH and opiate dependence. Pt is full code, regular diet, NKA, and on fall/seizure precautions. No reported seizure hx. Pt completed his 5 day Ativan and 5 day Subutex taper, started on 01/31/17, tolerated well. Upon assessment pt presents with mild anxiety and complains of pain in right upper quadrant of abdomen. PA is 1-2/10. Respirations 16, even and unlabored. Pt. will be D/C tomorrow. Safety measures in place. Call light within reach. Will continue to monitor.
[2017-02-05 20:00] VITALS: BP 134/77
[2017-02-05] MEDS: TRAZODONE 50 MG TABLET PO SCH (20:59)
--- NOTE | 2017-02-05 22:00 | NUR ---
PRN MOTRIN Pt c/o abdominal pain (right upper quadrant), 10/06. Pt provided with non pharmacological intervention with no relief. Administered PRN Motrin 600mg 1 tab PO as ordered. Safety measures in place : bed on lowest position with side rails x2 up for safety, call light within reach. Will continue to monitor closely and offer help.
--- NOTE | 2017-02-05 23:00 | NUR ---
RE-ASSESSMENT NE Pt reported pain subside to 2/10, pt. is resting in the bed right now. Safety measures in place : bed on lowest position with side rails x2 up for safety, call light within reach. Will continue to monitor closely and offer help.
--- NOTE | 2017-02-06 06:00 | NUR ---
PRN PRO-AIR pt. is wheezing, PRO-AIR 2 puffs was given as ordered. Cont. to monitor closely.
[2017-02-06] MEDS: ALBUTEROL SULFATE 2.5 MG/3 ML NEBU NEB PRN (06:43)
--- NOTE | 2017-02-06 06:46 | NUR ---
RE-ASSESSMENT PRO-AIR Pt. is sleeping, RR=16, unlabored and even. Safety measures in place : bed on lowest position with side rails x2 up for safety, call light within reach. Will continue to monitor closely and offer help.
--- NOTE | 2017-02-06 06:49 | NUR ---
END OF SHIFT NOTE : Pt is a 41 y/o male admitted on 01/30/17 for ETOH and opiate dependence. Pt is full code, regular diet, NKA, and on fall/seizure precautions. No reported seizure hx. Pt completed his 5 day Ativan and 5 day Subutex taper, started on 01/31/17, tolerated well. Pt. will be D/C today. Pt remains compliant with the treatment plan. PRN Motrin and Pro-Air was given because of abdominal pain (right upper quadrant) and wheezing during my shift. V/S remain WNL. RR=16, even and unlabored, lungs clear upon auscultation, abdomen soft and non- distended. Pt denies nausea, vomiting and diarrhea. CIWA and COWS taken when pt. was alert during the night, LAST CIWA= 1 ,COWS=1 at 0400 , [id number] ml, voided x4 , slept 6 hours. Safety measures in place : bed on lowest position with side rails x2 up for safety, call light within reach. Will continue to monitor closely and offer help.
[2017-02-06 08:02] VITALS: BP 138/90
--- NOTE | 2017-02-06 08:03 | NUR ---
START OF SHIFT Received report from maintenance mechanic 2nd shift nurse. 41 year old male patient admitted on 01/30/17 for ETOH and Opiate dependence. Pt has completed 5 day Subutex and 5 day Ativan taper and is medically cleared for discharge. Most recent CIWA is 1 and COWS ia 1. Pt received PRN Motrin and inhaler and both were effective. Denies pain at this time. Pt slept for 6 hours. Pt had US of abdomen and CT scan and results are wnl. All needs met at this time. Will continue to monitor.
[2017-02-06] MEDS: IBUPROFEN 600 MG TABLET PO PRN (08:49)
--- NOTE | 2017-02-06 08:49 | NUR ---
PRN MOTRIN Pt c/o 4/10 generalized pain and requests a Motrin, as ordered Motrin 600mg administered.
[2017-02-06] MEDS: SERTRALINE HCL 50 MG TABLET PO SCH (09:00)
[2017-02-06] MEDS: LIDOCAINE 5% PATCH TD SCH (09:00)
[2017-02-06] MEDS: GABAPENTIN 300 MG CAPSULE PO SCH (09:00)
[2017-02-06] MEDS: FOLIC ACID 1 MG TABLET PO SCH (09:00)
[2017-02-06] MEDS: CETRIZINE 10 MG PO SCH (09:00)
[2017-02-06] MEDS: DICYCLOMINE HCL 20 MG TABLET PO SCH (09:00)
[2017-02-06] MEDS: THIAMINE HCL 100 MG TABLET PO SCH (09:00)
[2017-02-06] MEDS: MULTIVITAMINS,THERAPEUTIC TABLET PO SCH (09:00)
[2017-02-06] MEDS: BACLOFEN 20 MG TABLET PO SCH (09:00)
--- NOTE | 2017-02-06 09:00 | NUR ---
0900 MEDICATION NON-ADMIN Patient is refusing all 0900 scheduled medications and states "For the first time, I feel great, I no longer have swelling in my feet, and I don't want to take my medications." Pt education provided on importance of med compliance.
--- NOTE | 2017-02-06 09:37 | NUR ---
D/C NOTES Pt is A/O x4. V/S remain WNL. Pt denies SI/HI or hallucinations. Pt shows no s/s of acute withdrawal at this time, and is stable. has medically cleared pt for d/c. Education on Hepatitis C, smoking cessation and medication side effects provided. Pt verbalizes understanding. All pt belongings are in belonging bag, including prescriptions, pt did not have any home medications. Electronic prescriptions were ordered as well. Refuses PNU vaccination and 0900 medications. Pt is being accompanied by ANALYTICAL CLERK at this time to be transported to rehab. All needs met.
== END 2017-02-06 09:37 | disposition home or self-care (01) | DRG 895 ==
LOC: SRC 10:38
PROVIDERS: ADMIT Internal Medicine; ATTEND Internal Medicine
PROC: HZ41ZZZ Group Counseling for Substance Abuse Treatment, Behavioral (ICD-10-PCS; principal; 2017-01-30)
PROC: HZ2ZZZZ Detoxification Services for Substance Abuse Treatment (ICD-10-PCS; principal; 2017-01-30)
PROC: HZ31ZZZ Individual Counseling for Substance Abuse Treatment, Behavioral (ICD-10-PCS; 2017-02-01)
DX: F10.230 Alcohol dependence with withdrawal, uncomplicated (principal); N17.9 Acute kidney failure, unspecified; E87.3 Alkalosis; K70.10 Alcoholic hepatitis without ascites; F11.23 Opioid dependence with withdrawal; K76.0 Fatty (change of) liver, not elsewhere classified; I15.9 Secondary hypertension, unspecified; Y90.9 Presence of alcohol in blood, level not specified; M19.071 Primary osteoarthritis, right ankle and foot; M77.02 Medial epicondylitis, left elbow; M77.01 Medial epicondylitis, right elbow; F17.220 Nicotine dependence, chewing tobacco, uncomplicated; Z81.1 Family history of alcohol abuse and dependence; Z81.8 Family history of other mental and behavioral disorders; Z82.5 Family history of asthma and other chronic lower respiratory diseases; Z80.42 Family history of malignant neoplasm of prostate; G47.00 Insomnia, unspecified; F41.9 Anxiety disorder, unspecified; E86.0 Dehydration; G89.29 Other chronic pain; M54.5 Low back pain; F32.9 Major depressive disorder, single episode, unspecified; J45.20 Mild intermittent asthma, uncomplicated
CPT/HCPCS: 36415; 70030-TC; 80307; 80361; 83690; 83735; 85025; 86580; 86592; 86705; 86803; 87340; 87806; 90686; 94640; 94664; G0480; J1885; J3411; J3590; Q0162

== ENCOUNTER 2017-02-02 18:13 | Outpatient (CLI) | payer BC ==
[~2017-02-02 18:13] MED LIST: ALBU0.63 NEB; CETI-102 PO; DICL100T2 PO; DIPH25CA83 PO; LOPE2CAP PO; MELA3TAB PO; PRED5DRO16 EACHEYE; SERT50TA PO; TRAZ-144 PO
[2017-02-05] MEDS ORDERED: DICY20TA28 PO (13:38)
[2017-02-05] MEDS ORDERED: GABA-534 PO (13:38)
[2017-02-05] MEDS ORDERED: BACL20TA PO (13:38)
[2017-02-05] MEDS ORDERED: LIDO30AD10 TD (13:38)
[2017-02-05] MEDS ORDERED: NICO4GUM38 BC (13:38)
[2017-02-05] MEDS ORDERED: IBUP-1955 PO (13:38)
== END 2017-02-02 23:59 ==
LOC: XRAY 18:13
PROVIDERS: ATTEND Internal Medicine
DX: R91.8 Other nonspecific abnormal finding of lung field (principal)
CPT/HCPCS: 71020

== ENCOUNTER 2017-02-03 19:40 | Outpatient (CLI) | payer BC ==
[2017-02-05] MEDS ORDERED: BACL20TA PO (13:38)
[2017-02-05] MEDS ORDERED: LIDO30AD10 TD (13:38)
[2017-02-05] MEDS ORDERED: DICY20TA28 PO (13:38)
[2017-02-05] MEDS ORDERED: NICO4GUM38 BC (13:38)
[2017-02-05] MEDS ORDERED: GABA-534 PO (13:38)
[2017-02-05] MEDS ORDERED: IBUP-1955 PO (13:38)
== END 2017-02-03 23:59 | disposition home or self-care (01) ==
LOC: XRAY 19:40
PROVIDERS: ATTEND Internal Medicine
DX: R16.0 Hepatomegaly, not elsewhere classified (principal)
CPT/HCPCS: 76700

== ENCOUNTER 2017-02-04 20:51 | Outpatient (CLI) | payer BC ==
[2017-02-05] MEDS ORDERED: BARIUM SULFATE 450 ML ORAL.SUSP ONE (08:27)
[2017-02-05] MEDS ORDERED: GABA-534 PO (13:38)
[2017-02-05] MEDS ORDERED: IBUP-1955 PO (13:38)
[2017-02-05] MEDS ORDERED: NICO4GUM38 BC (13:38)
[2017-02-05] MEDS ORDERED: BACL20TA PO (13:38)
[2017-02-05] MEDS ORDERED: DICY20TA28 PO (13:38)
[2017-02-05] MEDS ORDERED: LIDO30AD10 TD (13:38)
== END 2017-02-04 23:59 | disposition home or self-care (01) ==
LOC: CT 20:51
PROVIDERS: ATTEND Internal Medicine
DX: R10.9 Unspecified abdominal pain (principal)
CPT/HCPCS: 74176; Q9951